=== PATIENT | male | born 1995 | race Two or more races ===

== ENCOUNTER 2019-03-22 03:44 | Emergency (ER) | payer BC ==
[~2019-03-22] VITALS: Ht 165.1 cm; Wt 82.6 kg
[2019-03-22 06:33] VITALS: BP 116/79
[2019-03-22] MEDS ORDERED: TETANUS-DIPTH-ACEL PERTUSSIS 0.5ML SYRG IM ONE (07:00)
== END 2019-03-22 07:30 | disposition home or self-care (01) ==
LOC: ER 03:49
DX: S61.511A Laceration without foreign body of right wrist, initial encounter (principal); W25.XXXA Contact with sharp glass, initial encounter; Y93.89 Activity, other specified; Y92.89 Other specified places as the place of occurrence of the external cause; Y99.8 Other external cause status
CPT/HCPCS: 12002; 90471; 90715